=== PATIENT | female | born 1945 | race Caucasian/White ===

== ENCOUNTER → 2018-05-28 | Outpatient (CLI) | payer BC, MEDICARE | END | disposition home or self-care (01) | LOC: OIH 14:27 | PROVIDERS: ATTEND Internal Medicine | DX: K44.9 Diaphragmatic hernia without obstruction or gangrene (principal); J20.9 Acute bronchitis, unspecified | CPT/HCPCS: 71046 ==

== ENCOUNTER 2021-05-31 16:23 | Emergency (ER) | payer MEDICARE ==
[~2021-05-31] VITALS: Ht 154.9 cm; Wt 74.8 kg
[2021-05-31] MEDS ORDERED: MELO7.5T12 PO (17:31)
[2021-05-31 18:13] VITALS: BP 145/69
== END 2021-05-31 18:05 | disposition home or self-care (01) ==
LOC: EDH 16:23
DX: S82.62XA Displaced fracture of lateral malleolus of left fibula, initial encounter for closed fracture (principal); S93.602A Unspecified sprain of left foot, initial encounter; E11.9 Type 2 diabetes mellitus without complications; I11.9 Hypertensive heart disease without heart failure; J44.9 Chronic obstructive pulmonary disease, unspecified; Z88.0 Allergy status to penicillin; Z88.2 Allergy status to sulfonamides; Z88.1 Allergy status to other antibiotic agents; Z85.3 Personal history of malignant neoplasm of breast; Z79.1 Long term (current) use of non-steroidal anti-inflammatories (NSAID); W10.8XXA Fall (on) (from) other stairs and steps, initial encounter; Y93.89 Activity, other specified; Y92.89 Other specified places as the place of occurrence of the external cause; Y99.8 Other external cause status
CPT/HCPCS: 73610; 73630

== ENCOUNTER 2021-07-27 12:03 | Emergency (ER) | payer MEDICARE ==
[~2021-07-27] VITALS: Ht 157.5 cm; Wt 73.9 kg
[~2021-07-27 12:03] MED LIST: MELO7.5T12 PO
[2021-07-27] MEDS ORDERED: ACET1TAB25 PO (14:30)
[2021-07-27] MEDS ORDERED: HYDROCODONE/ACETAMINOPHEN 10/325 MG TAB PO ONE (15:30)
[2021-07-27 15:51] VITALS: BP 147/90
== END 2021-07-27 15:57 | disposition home or self-care (01) ==
LOC: EDH 12:03
DX: S52.501A Unspecified fracture of the lower end of right radius, initial encounter for closed fracture (principal); I10 Essential (primary) hypertension; E10.9 Type 1 diabetes mellitus without complications; Z98.890 Other specified postprocedural states; Z88.0 Allergy status to penicillin; Z88.1 Allergy status to other antibiotic agents; Z88.2 Allergy status to sulfonamides; Z79.899 Other long term (current) drug therapy; W01.0XXA Fall on same level from slipping, tripping and stumbling without subsequent striking against object, initial encounter; Y93.89 Activity, other specified; Y92.89 Other specified places as the place of occurrence of the external cause; Y99.8 Other external cause status
CPT/HCPCS: 29125; 73110

== ENCOUNTER 2021-09-29 11:24 | Observation (INO) | payer MEDICARE ==
[~2021-09-29] VITALS: Ht 157.5 cm; Wt 73.7 kg
[~2021-09-29 11:24] MED LIST changes: +ACET1TAB25 PO
[2021-09-29 11:54] LABS: BASOPHILS % (AUTO) 0.8 % (0.0-5.0); EOSINOPHILS % (AUTO) 0.3 % (0.0-8.0); HEMATOCRIT 43.5 % (36-48); MEAN CORPUSCULAR HEMOGLOBIN 28.5 pg (27.0-33.0); MEAN CORPUSCULAR HGB CONC 32.4 g/dL (32.0-36.0); MEAN CORPUSCULAR VOLUME 88.1 fL (79-99); MONOCYTES % (AUTO) 5.3 % (3.0-13.0); NEUTROPHILS % (AUTO) 77.7 % (40.0-77.0); PLATELET COUNT (AUTO) 189 K/uL (130-400); RED BLOOD CELL COUNT(AUTO) 4.94 MIL/uL (4.00-5.50); RED CELL DISTRIBUTION WIDTH 12.7 % (11.0-15.5); WHITE BLOOD COUNT (AUTO) 6.4 K/uL (4.8-10.8)
[2021-09-29 11:55] LABS: APPEARANCE,URINE CLEAR (CLEAR); BILIRUBIN,URINE NEGATIVE (NEGATIVE); COLOR,URINE YELLOW (YELLOW); GLUCOSE, URINE (UA) NEGATIVE (NEGATIVE); KETONES,URINE 15 mg/dL (NEGATIVE); LEUKOCYTE ESTERASE ,URINE NEGATIVE (NEGATIVE); NITRATE,URINE NEGATIVE (NEGATIVE); OCCULT BLOOD,URINE SMALL (NEGATIVE); PROTEIN,URINE NEGATIVE (NEGATIVE); UROBILINOGEN,URINE 0.2 mg/dL (0.2-1.0)
[2021-09-29 12:02] LABS: CREATININE 0.7 mg/dL (0.5-1.5); POTASSIUM 4.5 mmol/L (3.5-5.1)
[2021-09-29 12:07] LABS: ALBUMIN 4.1 g/dL (3.5-5.0); BILIRUBIN,TOTAL 0.9 mg/dL (0.2-1.0); TOTAL PROTEIN, SERUM 7.7 g/dL (6.0-8.3)
[2021-09-29 13:39] LABS: BACTERIA,URINE Rare /HPF (None Seen); RBC,URINE 0-1 /HPF (0-1); SQUAMOUS EPITHELIAL CELL,UR Rare /HPF (0-2); WBC,URINE 0-1 /HPF (0-1)
[2021-09-29] MEDS ORDERED: 0.9%NACL 1000ML 1,000 ML IV ONE ×2 (14:30→15:30)
[2021-09-29] MEDS ORDERED: ONDANSETRON 4MG INJ IVP ONE (14:30)
[2021-09-29] MEDS ORDERED: PANTOPRAZOLE 40 MG/VIAL IVP ONE ×2 (14:30→17:00)
[2021-09-29] MEDS ORDERED: PANTOPRAZOLE 40 MG/VIAL ONE (16:42)
[2021-09-29 17:35] LABS: HEMATOCRIT 38.5 % (36-48)
[2021-09-29 17:44] LABS: INR 1.02 (0.85-1.15); PROTHROMBIN TIME 11.1 SEC (9.6-11.6)
[2021-09-29 17:57] VITALS: BP 151/76
[2021-09-29] MEDS ORDERED: ONDANSETRON 4MG INJ ONE (19:37)
[2021-09-29] MEDS: ONDANSETRON 4MG INJ IVP PRN (19:45)
[2021-09-29] MEDS: PANTOPRAZOLE 40MG INJ 80 MG in 0.9%NACL 100ML 100 ML IVP SCH (19:49)
[2021-09-29] MEDS ORDERED: ERYTHROMYCIN BASE 250 MG TABLET PO SCH (20:00)
[2021-09-29] MEDS ORDERED: PROMETHAZINE HCL 25 MG/ML 1ML AMPULE IM PRN (20:00)
[2021-09-29 20:12] VITALS: BP 153/85
[2021-09-29] MEDS ORDERED: COMPOUND IV REFRIGERATED 1 EACH IVSOLN MISC PRN (20:30)
[2021-09-29] MEDS ORDERED: [UNRECOGNIZED DRUG - REMARK] MISC SCH (20:30)
[2021-09-29] MEDS: ERYTHROMYCIN LACTOBIONATE 250 MG in 0.9%NACL 100ML 100 ML IV SCH (22:24)
[2021-09-29 23:18] VITALS: BP 154/83
[2021-09-30] VITALS (21 sets, daily range): BP systolic 112–164; BP diastolic 57–95
[2021-09-30 00:32] LABS: HEMATOCRIT 37.5 % (36-48)
[2021-09-30] MEDS: PANTOPRAZOLE 40MG INJ 80 MG in 0.9%NACL 100ML 100 ML IVP SCH ×3 (01:30→20:34)
[2021-09-30] MEDS: ERYTHROMYCIN LACTOBIONATE 250 MG in 0.9%NACL 100ML 100 ML IV SCH (02:30)
[2021-09-30] MEDS ORDERED: ASPI-1443 PO (05:04)
[2021-09-30] MEDS ORDERED: TIMO5DRO27 OP (05:04)
[2021-09-30] MEDS ORDERED: BUSP10TA3 PO (05:04)
[2021-09-30] MEDS ORDERED: AMLO-257 PO (05:04)
[2021-09-30] MEDS ORDERED: METO-391 PO (05:04)
[2021-09-30] MEDS ORDERED: ISOS30TA92 PO (05:04)
[2021-09-30] MEDS ORDERED: LEVO100T4 PO (05:04)
[2021-09-30] MEDS ORDERED: LATA7.5D OP (05:04)
[2021-09-30] MEDS ORDERED: ROSU10TA28 PO (05:04)
[2021-09-30] MEDS ORDERED: MULT-1367 PO (05:04)
[2021-09-30] MEDS ORDERED: PANT40TA54 PO (05:04)
[2021-09-30] MEDS ORDERED: VENL75TA89 PO (05:04)
[2021-09-30] MEDS ORDERED: GLUC-29 PO (05:04)
[2021-09-30] MEDS ORDERED: CYCL30DR OP (05:04)
[2021-09-30] MEDS ORDERED: ERGO500093 PO (05:04)
[2021-09-30] MEDS ORDERED: CALC-1038 PO (05:04)
[2021-09-30 06:03] LABS: HEMATOCRIT 36.1 % (36-48)
[2021-09-30] MEDS: ONDANSETRON 4MG INJ IVP PRN (06:43)
[2021-09-30] MEDS ORDERED: MIDAZOLAM HCL 1 MG/ML 2ML VIAL ONE (09:41)
[2021-09-30] MEDS ORDERED: PROPOFOL 10 MG/ML 20ML VIAL IV ONE (09:41)
[2021-09-30] MEDS ORDERED: LIDOCAINE PF 100MG/5ML (2%) SYRINGE 5ML ONE (09:42)
[2021-09-30] MEDS ORDERED: EPHEDRINE SULFATE 50 MG/ML AMPULE ONE (09:42)
[2021-09-30 11:59] LABS: HEMATOCRIT 36.9 % (36-48)
[2021-09-30 18:18] LABS: HEMATOCRIT 36.8 % (36-48)
[2021-10-01 00:01] VITALS: BP 158/77
[2021-10-01 00:39] LABS: HEMATOCRIT 35.5 % (36-48)
[2021-10-01 04:03] VITALS: BP 160/66
[2021-10-01 04:05] VITALS: BP 160/66
[2021-10-01] MEDS: PANTOPRAZOLE 40MG INJ 80 MG in 0.9%NACL 100ML 100 ML IVP SCH (06:23)
[2021-10-01 07:30] VITALS: BP 169/94
[2021-10-01] MEDS ORDERED: PANTOPRAZOLE 40 MG TAB DR PO SCH (09:00)
[2021-10-01] MEDS ORDERED: CARAL PO (10:05)
[2021-10-01] MEDS ORDERED: PANT40TA PO (10:05)
[2021-10-01] MEDS ORDERED: AMLODIPINE 5 MG TAB PO ONE (10:30)
[2021-10-01] MEDS ORDERED: METOPROLOL SUCCINATE 50 MG TAB.SR.24H PO ONE (10:30)
[2021-10-01 11:00] VITALS: BP 170/84
== END 2021-10-01 13:30 | disposition home or self-care (01) ==
LOC: EDH 11:24 → EDHIP 15:18 → INTOOBSV 15:18 → 4DH 17:51
PROVIDERS: ADMIT Internal Medicine; ATTEND Internal Medicine
DX: K92.2 Gastrointestinal hemorrhage, unspecified (principal); I25.10 Atherosclerotic heart disease of native coronary artery without angina pectoris; I10 Essential (primary) hypertension; J44.9 Chronic obstructive pulmonary disease, unspecified; E03.9 Hypothyroidism, unspecified; E78.5 Hyperlipidemia, unspecified; C50.919 Malignant neoplasm of unspecified site of unspecified female breast; K22.2 Esophageal obstruction; E86.0 Dehydration; K44.9 Diaphragmatic hernia without obstruction or gangrene; M19.90 Unspecified osteoarthritis, unspecified site; G47.30 Sleep apnea, unspecified; Z95.1 Presence of aortocoronary bypass graft; Z79.82 Long term (current) use of aspirin; Z87.891 Personal history of nicotine dependence; Z85.3 Personal history of malignant neoplasm of breast; Z96.642 Presence of left artificial hip joint; Z95.5 Presence of coronary angioplasty implant and graft; Z96.652 Presence of left artificial knee joint; Z79.899 Other long term (current) drug therapy; Z98.890 Other specified postprocedural states
CPT/HCPCS: 36415 ×3; 43239; 43249; 74176; 80053; 81001; 82270; 83036; 84484; 85014 ×6; 85018 ×6; 85025; 85610; 86850; 86900; 86901; 87324; 93005; 96361; 96365; 96366 ×6; 96368; 96375; 96376 ×3; 99285; A4222; A4223; A4606; A4620; A7002; C9113 ×4; G0378 ×19; J1364; J2001; J2250; J2405 ×3; J2704; J3490; J7030 ×2